=== PATIENT | female | born 1980 | race Two or more races ===

== ENCOUNTER 2022-10-20 00:02 | Emergency (ER) | payer OTHER ==
[~2022-10-20] VITALS: Ht 167.6 cm; Wt 59.4 kg
[2022-10-20 01:33] VITALS: BP 120/74
== END 2022-10-20 03:16 | disposition home or self-care (01) ==
LOC: ER 00:04
DX: J02.8 Acute pharyngitis due to other specified organisms (principal)
CPT/HCPCS: 86403-TC; C9803